=== PATIENT | male | born 1940 | race Hispanic/Latino ===

== ENCOUNTER 2022-06-20 00:59 | Emergency (ER) | payer MEDICARE ==
[2022-06-20 01:16] VITALS: BP 145/75
[2022-06-20 01:31] VITALS: BP 144/71
[2022-06-20 02:15] VITALS: BP 144/71
== END 2022-06-20 02:22 | disposition home or self-care (01) ==
LOC: ED 00:59
DX: S00.81XA Abrasion of other part of head, initial encounter (principal); X93.XXXA Assault by handgun discharge, initial encounter; Y92.410 Unspecified street and highway as the place of occurrence of the external cause